=== PATIENT | female | born 1980 | race American Indian/Alaskan Native ===

== ENCOUNTER 2016-08-27 07:16 | Inpatient (IN) | payer BC, OTHER ==
[2016-08-27] MEDS ORDERED: Penicillin G 5 Million Unit Vial IVPB ONE ×3 (07:20→07:33)
[2016-08-27 07:22] VITALS: BMI 56.2
[2016-08-27] MEDS ORDERED: Lactated Ringer's 1,000 ML IV SCH (07:30)
[2016-08-27] MEDS ORDERED: Lidocaine 2% Inj (20ml) ONE (07:33)
--- NOTE | 2016-08-27 08:00 | OBHP ---
Datetime: 08/27/2016 07:23 IP Adm Impression: , intrauterine ; Active labor; Ruptured Membranes IP Admit Plan: Admit to unit; Initiate labor protocol Admit Comment, IP Provider: chief complaint-contractions; spotting HPI 36 y/o at 36.6 wga with c/o waking up this am and on using the bathrrom she noticed some spotting.Patient states that she noticed that she had some contractions starting after that.When she reached the hospital she had a gush of fluid and has bene leaking sinvce then.patient denies any vulv ar or vaginal burning pain, dysuria.denies any herpetic symptoms course AMA ; course with dr owen in [place] at [facility]; hx of gen ital herpes outbreak 6 months ago.patient not on ant-herpes meds PMH chronic hypertension PSH lap band OBGYN HX ; NVDX1 9 piunds; sabx2; hx pf hsv type 2 Social hx denies tobacco,alcohol or illicit drug use Exam see exam section Vulva no lesions vagina- no lesions; +pooling, nitrazine and ferning positive A/P 36 y/o at 36/6 wga in labor.patient with srom on arroval to hospital.clinically n o evidence of herpetic lesions.patient denies any symptoms plan-admit patient -syart pen g -obatin prenatals from dr quinonez office Pelvic Type - PN: Adequate Extremities - PN: Normal Abdomen - PN: Normal Back - PN: Normal Lungs - PN: Normal Heart - PN: Normal Neurologic - PN: Normal General - PN: Normal Weight - Estimated: 3000 Presentation-Admit: Vertex FHR - Baseline A Provider: 150 Amniotic Fluid Color, Provider: Clear Membranes, Provider: Ruptured Contraction Comments Provider: irregular Comments, ACOG Physical Exam: vulva no lesions vagina no leisons; +small amount of clear fluid; nitrazien and ferning positive cervix 5/90/-2 Gestation - Est Wks by US: 36.6 Pool Provider: Positive Nitrazine Provider: Positive Ferning Provider: Positive IP Hx Assessment: The History has been Reviewed and is Current Vital Signs Provider: Reviewed IP Chief Complaint: Uterine contractions NICHD Variability Prov Fetus A: Moderate 6-25bpm NICHD Accel Fetus A IP Provider: 15X15 FHR Category Provider Fetus A: Category I NICHD Decel Fetus A IP Provider: None Dilatation, Provider: 5 Effacement, Provider: 90 Station, Provider: -2 Genitourinary Exam: Normal DTRs - PN: Normal
--- NOTE | 2016-08-27 08:03 | OBADHP ---
Datetime: 08/27/2016 07:23 Admit Comment, IP Provider: chief complaint-contractions; spotting HPI 36 y/o at 36.6 wga by stated edc, with c/o waking up this am and on using the bathrrom sh e noticed some spotting.Patient states that she noticed that she had some contractions starting after that.When she reached the hospital she had a gush of fluid and has bene leaking sinvce then.patient denies any vulvar or vaginal burning pain, dysuria.denies any herpetic symptoms course AMA ; course with dr owen in [place] at [facility]; hx of gen ital herpes outbreak 6 months ago.patient not on ant-herpes meds PMH chronic hypertension PSH lap band OBGYN HX ; NVDX1 9 piunds; sabx2; hx pf hsv type 2 Social hx denies tobacco,alcohol or illicit drug use Exam see exam section Vulva no lesions vagina- no lesions; +pooling, nitrazine and ferning positive A/P 36 y/o at 36/6 wga in labor.patient with srom on arroval to hospital.clinically n o evidence of herpetic lesions.patient denies any symptoms.Patient with chronic hypertension. plan-admit patient -start pen g -obatin prenatals from dr quinonez office note-no chnage in h_p from [place] noted -fse placed for monitoring as unable to trace fetus secondary to patient [place].patient at the time of placing fse 7 cm dilated continue to monitor closely Pelvic Type - PN: Adequate Extremities - PN: Normal Abdomen - PN: Normal Back - PN: Normal Lungs - PN: Normal Heart - PN: Normal Neurologic - PN: Normal General - PN: Normal Weight - Estimated: 3000 Presentation-Admit: Vertex FHR - Baseline A Provider: 150 Amniotic Fluid Color, Provider: Clear Membranes, Provider: Ruptured Contraction Comments Provider: irregular Comments, ACOG Physical Exam: vulva no lesions vagina no leisons; +small amount of clear fluid; nitrazien and ferning positive cervix 5/90/-2 Gestation - Est Wks by US: 36.6 Pool Provider: Positive Nitrazine Provider: Positive Ferning Provider: Positive IP Hx Assessment: The History has been Reviewed and is Current Vital Signs Provider: Reviewed IP Chief Complaint: Uterine contractions NICHD Variability Prov Fetus A: Moderate 6-25bpm NICHD Accel Fetus A IP Provider: 15X15 FHR Category Provider Fetus A: Category I NICHD Decel Fetus A IP Provider: None Dilatation, Provider: 5 Effacement, Provider: 90 Station, Provider: -2 Genitourinary Exam: Normal DTRs - PN: Normal IP Adm Impression: , intrauterine ; Active labor; Ruptured Membranes IP Admit Plan: Admit to unit; Initiate labor protocol
[2016-08-27 08:13] LABS: BASO % 0.8 % (0.0-2.0); EOS # 0.1 K/uL (0.0-0.7); EOS % 1.3 % (0.0-4.0); HEMOGLOBIN 10.6 g/dL (11.0-16.0); LYMPH # 1.4 K/uL (1.0-4.3); LYMPH % 24.3 % (20.0-40.0); MEAN CELL VOLUME 82.9 fL (81.0-99.0); MEAN CORPUSCULAR HEMOGLOBIN 26.7 pg (27.0-31.0); MEAN CORPUSCULAR HGB CONC 32.2 g/dL (33.0-37.0); MONO # 0.6 K/uL (0.0-0.8); NEUT # 3.5 K/uL (1.8-7.0); NEUT % 62.6 % (50.0-75.0); NRBC % 0.3 % (0.0-2.0); RBC 3.95 Mil/uL (3.80-5.20); RED CELL DISTRIBUTION WIDTH 16.4 % (11.5-14.5); WHITE BLOOD COUNT 5.6 K/uL (4.8-10.8)
[2016-08-27 08:26] LABS: ALBUMIN 3.2 g/dL (3.5-5.0)
[2016-08-27 08:29] LABS: AST/SGOT 34 U/L (14-36); GFR AFRICAN-AMERICAN > 60; GFR NON-AFRICAN AMERICAN > 60
[2016-08-27 08:30] LABS: ALB/GLOB RATIO 1.1 (1.0-2.1); ALT/SGPT 32 U/L (9-52); BLOOD UREA NITROGEN 4 mg/dL (7-17)
[2016-08-27 08:31] LABS: CALCIUM 9.1 mg/dl (8.6-10.4)
[2016-08-27 08:48] LABS: SQUAMOUS EPITHIAL 4 /hpf (0-5); URINE BACTERIA RARE (<OCC); URINE BILIRUBIN NEGATIVE (NEGATIVE); URINE BLOOD 3+ (NEGATIVE); URINE CLARITY Clear (Clear); URINE COLOR Yellow (YELLOW); URINE GLUCOSE (UA) NORMAL (Normal); URINE LEUKOCYTE ESTERASE 1+ Leu/uL (Negative); URINE NITRATE NEGATIVE (NEGATIVE); URINE PROTEIN 1+ mg/dL (NEGATIVE); URINE UROBILINOGEN NORMAL mg/dL (0.2-1.0)
[2016-08-27 09:02] LABS: HEPATITIS B SURFACE AG NEGATIVE (NEGATIVE)
[2016-08-27] MEDS ORDERED: Benzocaine/Menthol 20%-0.5% Topical Spray (60 ml) TOP PRN (09:07)
[2016-08-27] MEDS ORDERED: Acetaminophen-Codeine 300/30 mg Tab PO PRN (09:07)
[2016-08-27 09:17] LABS: PROTHROMBIN TIME 10.9 SECONDS (9.7-12.2)
--- NOTE | 2016-08-27 09:47 | OBDS ---
DELIVERY PERSONNEL Delivery Doctor: Verito Metzger MD Acquisition Advisor: Mary Nj RN Resident: marla MATERNAL INFORMATION Delivery Anesthesia: Local Medications in Delivery: cytotec 100mcg per rectum given by post delivery at 0902 Estimated Blood Loss (ml): 200 Placenta Cultured: No Maternal Complications: None RN Comments: live baby girl born via nsd, 9/9 Provider Comments: of a female Body and shoulders delivered without diffuclty cord clamped and cut.segment of cord taken for cord blood gases cord blood collected Placenta spontaneously delivered second degree perineal laceration repaired with 2-0 chromic small blood collected removed from cervix 1000mcg cytoetc placed rectally fundus firm apgars 9/9 at 1 and 5 min of life Patient stable LABOR SUMMARY EDC: 09/18/2016 00:00 No. Babies in Womb: 1 Attempted: No Labor Anesthesia: None LABOR INFORMATION Reason for Induction: Not Applicable Onset of Labor: 08/27/2016 05:00 Complete Dilatation: 08/27/2016 08:40 Oxytocin: N/A Group B Beta Strep: Done, Result Unknown Antibiotics # of Doses: 1 Antibiotics Time of Last Dose: 741 Steroids Given: None Reason Steroids Not Administered: Not Applicable MEMBRANES Membranes Rupture Method: Spontaneous Rupture of Membranes: 08/27/2016 07:05 Length of Rupture (hrs): 1.62 Amniotic Fluid Color: Clear Amniotic Fluid Amount: Small Amniotic Fluid Odor: None STAGES OF LABOR Stage 1 hrs: 3 Stage 1 min: 40 Stage 2 hrs: 0 Stage 2 min: 2 Stage 3 hrs: 0 Stage 3 min: 9 Total Time in Labor hrs: 3 Total Time in Labor min: 51 VAGINAL DELIVERY Episiotomy: None Laceration Extension: Second Degree Laceration Type: Perineal Laceration Repair: Yes Laceration Repair Note: second degree perineal laceration repaired with 2-0 chromic Initial Vag Sponge Count: 10 Final Vag Sponge Count: 10 Initial Vag Sharps Count: 1 Final Vag Sharps Count: 1 Sponge Count Correct: Yes; Vaginal Sweep Performed Sharps Count Correct: Yes Count Comment: dr metzger counted with rn sponge and sharp--all counts correct BABY A INFORMATION Infant Delivery Date/Time: 08/27/2016 08:42 Method of Delivery: Vaginal Born in Route : No : N/A Forceps: N/A Vacuum Extraction: N/A Shoulder Dystocia : No SHOULDER DYSTOCIA BABY A Infant Delivery Date/Time: 08/27/2016 08:42 PRESENTATION/POSITION BABY A Presentation: Cephalic Cephalic Presentation: Vertex Vertex Position: Right Occipital Anterior Breech Presentation: N/A PLACENTA INFORMATION BABY A Placenta Delivery Time : 08/27/2016 08:51 Placenta Method of Delivery: Spontaneous Placenta Status: Delivered SCORES BABY A Heart Rate 1 min: >100 bpm Resp Effort 1 min: Good Cry Reflex Irritability 1 min: Cough or Sneeze or Pulls Away Muscle Tone 1 min: Active Motion Color 1 min: Body [place], Extremities Blue SCORE 1 MIN: 9 Heart Rate 5 min: >100 bpm Resp Effort 5 min: Good Cry Reflex Irritability 5 min: Cough or Sneeze or Pulls Away Muscle Tone 5 min: Active Motion Color 5 min: Body [place], Extremities Blue SCORE 5 MIN: 9 INFANT INFORMATION BABY A Gestational Age at Delivery: 36.6 Gestational Status: Term Outcome : Liveborn Condition : Stable Infant Sex: Female IDENTIFICATION/MEDS BABY A ID Band Number: [id number] ID Band Location: Left Leg; Left Arm Sensor Applied: Yes Sensor Number: [id number] Sensor Location : Cord Clamp Vitamin K Given : Not Given Erythromycin Given: Not Given WEIGHT/LENGTH BABY A Birthweight (gms): 3155 Weight (lb): 6 Weight (oz): 15 Infant Length Inches: 20.00 Infant Length cms: 50.8 CORD INFORMATION BABY A No. Cord Vessels: 3 Nuchal Cord : N/A Cord Blood Taken: Yes Suction: Mouth; Nose ASSESSMENT BABY A Infant Complications: None Physical Findings at Delivery: Within Normal Limits Physical Findings Other: voided after delivery Infant Respirations: Appears Normal [employer] Called : No Care By: matheus Transferred To: Remains with Mother
[2016-08-27] MEDS: Multiple Vitamins Tab PO SCH (11:02)
[2016-08-27 11:04] LABS: BARBITURATES, UR NEGATIVE (NEGATIVE)
[2016-08-27 11:05] LABS: BENZODIAZEPINES, UR NEGATIVE (NEGATIVE)
[2016-08-27 11:12] LABS: OPIATES, UR NEGATIVE (NEGATIVE)
[2016-08-27 11:13] LABS: PHENCYCLIDINE, UR NEGATIVE (NEGATIVE)
[2016-08-27 17:02] LABS: RAPID PLASMA REAGIN NONREACTIVE (NONREACTIVE)
[2016-08-28 07:21] LABS: HEMOGLOBIN 10.3 g/dL (11.0-16.0); MEAN CELL VOLUME 84.7 fL (81.0-99.0); MEAN CORPUSCULAR HEMOGLOBIN 26.3 pg (27.0-31.0); MEAN PLATELET VOLUME 9.5 fL (7.2-11.7); RBC 3.91 Mil/uL (3.80-5.20); RED CELL DISTRIBUTION WIDTH 16.3 % (11.5-14.5); WHITE BLOOD COUNT 7.9 K/uL (4.8-10.8)
[2016-08-28 08:11] VITALS: O2SAT 99
[2016-08-28] MEDS: Multiple Vitamins Tab PO SCH (09:24)
[2016-08-28] MEDS ORDERED: Enoxaparin 40 mg Syringe SC ONE (09:25)
[2016-08-29 00:12] VITALS: RESP 20
[2016-08-29 08:18] VITALS: BP 142/97; PULSE 91; TEMP 97.5
[2016-08-29] MEDS: Multiple Vitamins Tab PO SCH (09:39)
--- NOTE | 2016-08-29 20:03 | OBPPN ---
Datetime: 08/29/2016 19:56 PP Pain Prov: Within normal limits PP Nausea Prov: Denies PP Flatus Prov: Yes PP BM Prov: Yes PP Breasts Prov: Normal PP Heart Prov: Normal PP Lungs Prov: Normal PP Abdomen/Uterus Prov: Normal PP Lochia Prov: Normal PP Vulva/Perineum Prov: Not Done PP CVA Tenderness Prov: Normal PP Extremities Prov: Abnormal PP C/S Incision Prov: Not Applicable PP Progress Prov: Normal PP Comments Phys Exam Prov: Abdomen: Obese; soft, non distended. Fundus - firm, mobile, non tender, 1 FB below umbilicus. Minimal lochia rubra Extremities: 3+ lower extremitiy pitting edema. No calf tenderness bilaterally All other systems reviewed and are negative PP Plan Prov: Discharge PP Progress Note Prov: Patient seen and evaluated earlier, approximately 0735 hours: received in bed , room 459: pleased to be going home. (+) breastfeednig. Denies headaches, blurred vision; nausea or vomiting; dizziness or lightheadedness P.E.: as above. Morbidly obese, in NAD. awake, alert, oriented to time, person and place. Pleasa nt and cooperative Assessment: PPD#2, 36 y.o. S/P , chronic HTN, on labetalol. BP at 0730 hours noted; repeat at 1 052 hours 125/81. Aferile, vital signs stable. Interested in IUD. Discussed that pedal edema is wnl f or post state. Clinically stable. Plan: 1) Discharge home 2) See full discharge instructions Vital Signs Provider PP: Reviewed; Within Normal Limits
--- NOTE | 2016-08-29 20:05 | OBDCSUM ---
Datetime: 08/29/2016 12:01 Discharged to, Provider: Home Follow up at, Provider: Dr. Acosta Disch Instr Activity: Normal activity; May be up to bathroom; May be up for meals; May Shower Disch Instr Diet: Restricted, specify Discharge Diet restrict Prov: Low sodium Discharge Diagnosis, Provider: Term Delivered Discharge Time: 08/29/2016 12:01 Follow up in weeks, Provider: October 08, 2016 Disch Referrals: None Contraception discussed, Prov: Yes Disch Activity Restrictions: No exercising; No lifting; No sexual activity; Nothing in vagina - Inte rcourse, tampons, douche Discharge Diagnosis Prov Other: Chronic hypertension Morbid obesity Anemia Contraception counseling Contraception after Delivery: IUD
== END 2016-08-29 13:10 | disposition home or self-care (01) | DRG 774 ==
LOC: C.EROB 07:16 → C.4D 07:21 → C.4M 10:54
PROVIDERS: ADMIT Student in an Organized Health Care Education/Training Program; ATTEND Student in an Organized Health Care Education/Training Program
PROC: 10E0XZZ Delivery of Products of Conception, External Approach (ICD-10-PCS; principal; 2016-08-27)
PROC: 0KQM0ZZ Repair Perineum Muscle, Open Approach (ICD-10-PCS; 2016-08-27)
DX: O26.853 Spotting complicating pregnancy, third trimester (principal); O98.32 Other infections with a predominantly sexual mode of transmission complicating childbirth; I10 Essential (primary) hypertension; Z37.0 Single live birth; Z3A.36 36 weeks gestation of pregnancy; O70.1 Second degree perineal laceration during delivery; A60.00 Herpesviral infection of urogenital system, unspecified; O10.92 Unspecified pre-existing hypertension complicating childbirth; E66.01 Morbid (severe) obesity due to excess calories; O99.214 Obesity complicating childbirth; D64.9 Anemia, unspecified; O99.02 Anemia complicating childbirth